=== PATIENT | male | born 1975 | race Caucasian/White ===

== ENCOUNTER 2016-10-11 23:16 | Emergency (ER) | payer OTHER ==
[2016-10-12 01:40] LABS: HEMOGLOBIN 15.4 gm/dl (14.0-17.5); RED BLOOD COUNT 5.17 M/UL (4.20-5.50); WHITE BLOOD COUNT 11.5 K/UL (4.5-11.0)
[2016-10-12 02:00] LABS: BUN/CREATININE RATIO 15 (0-10)
== END 2016-10-12 06:38 | disposition home or self-care (01) ==
LOC: ER1 23:16
PROVIDERS: Student in an Organized Health Care Education/Training Program
DX: R07.9 Chest pain, unspecified (principal); R20.2 Paresthesia of skin; R11.0 Nausea; R42 Dizziness and giddiness; R61 Generalized hyperhidrosis; F41.9 Anxiety disorder, unspecified; K21.9 Gastro-esophageal reflux disease without esophagitis; Z87.891 Personal history of nicotine dependence; Z79.899 Other long term (current) drug therapy
CPT/HCPCS: 36415; 70450; 71010; 80053; 81001; 82550; 82553; 83874; 84443; 84484; 85025; 85379; 85610; 85730; 87086; 93005; 99285